=== PATIENT | female | born 1955 | race Caucasian/White ===

== ENCOUNTER → 2016-09-02 | Outpatient (CLI) | payer OTHER ==
--- NOTE | 2016-09-02 12:22 | MA ---
Screening Digital Mammogram With iCAD Analysis Clinical Indications: Routine screening. A grandmother was diagnosed with breast cancer. Technique: Standard cephalocaudal and mediolateral oblique projections were obtained. This examinatio n was processed by the [employer] computer aided detection system. Comparison: January 2013, August 2011, July 2010, March 2009, March 2008, September 2006. Breast density: Type B; Scattered fibroglandular densities. Findings: CAD was reviewed. No masses, suspicious calcifications or other signs of malignancy are id entified. There has been no significant change in the appearance of either breast. Impression: Negative mammogram. BI-RADS 1. Recommendation: Routine mammographic screening in one year as long as physical [facility]. Negative mammography should not preclude additional workup of a clinically suspicious finding. The patient's information is entered into a reminder system with a target due date for her next mammo gram.
== END ==
LOC: BRMIMAGING 11:16
DX: Z12.31 Encounter for screening mammogram for malignant neoplasm of breast (principal); Z80.3 Family history of malignant neoplasm of breast
CPT/HCPCS: G0202

== ENCOUNTER 2016-11-02 07:15 | Emergency (ER) | payer OTHER ==
[2016-11-02 07:26] VITALS: RESP 16; TEMP 98.2
--- NOTE | 2016-11-02 07:40 | UCPHY ---
H & P Patient Type: Established Chief Complaint Nursing Narrative: Nonproductive cough, L jaw, and intermittent L ear pain x 5 days. Denies fever. Time Seen by Provider: 11/02/16 07:20 HPI/ROS: Chief Complaint: Cough, sinus pain, left ear pain HPI: 61-year-old woman presenting with 4 days of worsening nonproductive cough and left ear pain. Patient states feels like prior episodes of bronchitis. She is also having some facial pain which was exiting sinus. Developing left ear pain and pain when she moves her jaw for the last couple days. No fevers or chills. No chest pain. No nausea or vomiting. ROS: 10 point Review of Systems is negative except as noted in the HPI. PMH: None Medications: None Allergies: No known drug allergies Social History: No smoking, occasional alcohol, no recreational drug use Family History: non-contributory Physical Exam: Gen: Awake, Alert, No Distress HEENT: Ears: Left TM is erythematous and bulging, external auditory canal is clear. Right ear is normal Nose: no rhinorrhea Eyes: PERRLA, EOMI Mouth: Moist mucosa Neck: Supple, no JVD Chest: nontender, mild diffuse expiratory wheeze to forced expiration, no focal crackles Heart: S1, S2 normal, no murmur Abd: Soft, non-tender, no guarding Back: no CVA tenderness, no midline tenderness Ext: no edema, non-tender Skin: no rash Neuro: CN II-XII intact, Sensation grossly intact, Strength 5/5 in bilateral upper and lower extremities - Personal History Current Tetanus Diphtheria and Acellular Pertussis (TDAP): Yes Tetanus Vaccine Date: within 10 years - Medical/Surgical History Hx Asthma: No Hx Chronic Respiratory Disease: No Hx Diabetes: No Hx Cardiac Disease: No Hx Renal Disease: No Hx Cirrhosis: No Hx Alcoholism: No Hx HIV/AIDS: No Hx Splenectomy or Spleen Trauma: No Other PMH: , DVT LLE - Family History Significant Family History: No pertinent family hx - Social History Smoking Status: Former smoker Constitutional: Initial Vital Signs Temperature (C) 36.8 C 11/02/16 07:23 Heart Rate 107 H 11/02/16 07:23 Respiratory Rate 16 11/02/16 07:23 Blood Pressure 138/93 H 11/02/16 07:23 O2 Sat (%) 93 11/02/16 07:23 O2 Delivery Mode Room Air Allergies/Adverse Reactions: No Known Allergies Allergy (Verified 11/02/16 07:23) Home Medications: Medication Instructions Recorded Albuterol [Proventil Inhaler HFA 1 - 2 puffs IH Q4H #1 mdi 11/02/16 (*)] Amoxicillin 500 mg PO TID 10 Days 11/02/16 Codeine Phosphate/Guaifenesin 10 ml PO Q6H #120 liquid 11/02/16 [Codeine-Guaifen 10-100 mg/5 ml] Inhaler, Assist Devices [Space 1 each MC Q4H #0 spacer 11/02/16 Chamber Plus] Departure - Departure Disposition: Home, Routine, Self-Care Clinical Impression: Bronchitis, Otitis media Condition: Good Instructions: Otitis Media (ED), Acute Bronchitis (ED), Bronchospasm (ED), Wheezing (ED) Additional Instructions: Follow up with her primary care physician in 3-4 days if symptoms are not improving. Return to the emergency department or urgent care for increasing shortness of breath, fevers, chills, or any other concerns. Referrals: Gabriela Hernandez MD [Primary Care Provider] - As per Instructions Prescriptions: Albuterol [Proventil Inhaler HFA (*)] 1 - 2 puffs IH Q4H #1 mdi Amoxicillin 500 mg PO TID 10 Days Codeine Phosphate/Guaifenesin [Codeine-Guaifen 10-100 mg/5 ml] 10 ml PO Q6H # 120 liquid Inhaler, Assist Devices [Space Chamber Plus] 1 each MC Q4H #0 spacer - PQRS PQRS Measurement: NA
[2016-11-02 07:42] VITALS: BP 136/89; PULSE 102; O2SAT 94
== END 2016-11-02 07:43 | disposition home or self-care (01) ==
LOC: CED 07:15
DX: J20.9 Acute bronchitis, unspecified (principal); H66.92 Otitis media, unspecified, left ear; Z87.891 Personal history of nicotine dependence
CPT/HCPCS: 99214-PO; G0463-PO

== ENCOUNTER → 2017-11-23 | Outpatient (CLI) | payer OTHER | LOC: BRMIMAGING 14:27 | PROVIDERS: ATTEND Internal Medicine | DX: Z12.31 Encounter for screening mammogram for malignant neoplasm of breast (principal) ==

== ENCOUNTER → 2017-12-22 | Outpatient (CLI) | payer OTHER | LOC: BMCIMAGING 12:08 | PROVIDERS: ATTEND Internal Medicine | DX: R07.9 Chest pain, unspecified (principal) ==